=== PATIENT | male | born 2000 | race African-American/Black ===

== ENCOUNTER 2023-11-24 17:45 | Emergency (ER) | payer OTHER, SELFPAY ==
[2023-11-24 17:51] VITALS: BP 108/54; PULSE 80; O2SAT 99
[2023-11-24 18:14] VITALS: BP 116/73; PULSE 92; RESP 13; TEMP 36.6; O2SAT 99; BMI 44.1
[2023-11-24] MEDS: levETIRAcetam in NaCl (iso-os) 1,000 MG/100 ML PIGGYBACK 400 MG IV (18:55)
--- NOTE | 2023-11-24 19:21 | ED.GENADULT ---
HPI - General Adult General Chief complaint: Seizure Stated complaint: 2 SEIZURES Time Seen by Provider: 11/24/23 18:34 Source: patient, RN notes reviewed and old records reviewed Mode of arrival: EMS Limitations: no limitations History of Present Illness HPI narrative: 23-year-old male presents for evaluation of a seizure. Per the patient's significant other, the patient had a ?silent seizure this morning. ? They are unsure exactly what time this was About 30 minutes prior to arrival the patient had a tonic-clonic seizure witnessed by his significant other. She reports this lasted about 3 minutes Per EMS, the patient was postictal upon arrival At the time my evaluation he is awake, alert and oriented. The patient reports he takes Keppra 1gram b.i.d. He is unsure if he took his medication this morning Currently reports a mild headache. He was lying in bed during both seizures so there was no fall or head trauma No other complaints or concerns at this time Related Data Previous Rx's ?Medication ?Instructions ?Recorded lacosamide 100 mg tablet 100 mg PO BID #60 tabs 11/24/23 Allergies Allergy/AdvReac Type Severity Reaction Status Date / Time No Known Allergies Allergy Verified 11/24/23 18:16 Review of Systems Constitutional: Constitutional: Denies body ache(s), Denies chills, Denies fever(s) and Reports headache(s) Eyes: Eyes: Denies blurry vision ENT: Reports headache(s) and Denies sore throat Cardiovascular: Cardiovascular: Denies chest pain and Denies dyspnea Respiratory: Respiratory: Denies cough and Denies dyspnea Gastrointestinal: Gastrointestinal: Denies abdominal pain, Denies nausea and Denies vomiting Musculoskeletal: Musculoskeletal: Denies back pain Integumentary/Breasts: Skin/Breast: Denies rash Neurologic: Reports headache(s), Reports convulsions and Reports seizure-like activity Psychiatric: Psychiatric: Denies depression PMFSH Social History Social History Advance Directives: No Advance Directives Information Provided: No Physical Exam ED Vital Signs: Vital Signs - 24 hr 11/24/23 18:14 Temperature 97.9 F Pulse Rate 92 Respiratory Rate 13 Blood Pressure 116/73 Pulse Oximetry 99 Oxygen Delivery Method Room Air BMI result Body Mass Index 44.1 Const General: healthy appearing, comfortable, no acute distress, alert and awake Nutritional Appearance: well nourished Orientation/consciousness: patient oriented x3 HENMT Head: Yes normocephalic and Yes atraumatic Eyes Eyelids: Yes eyelids normal Conjunctivae: conjunctivae normal Sclerae: sclerae normal Corneas: corneas normal Pupils: Equal, round and reactive pupils present EOM: EOMs intact bilaterally Neck Neck: Yes full ROM Resp Effort & Inspection: normal respiratory effort, able to speak in complete sentences and not labored Cardio Rate: regular rate Rhythm: regular rhythm GI Inspection: No distended Palpation (GI): Soft to palpation, not firm, nontender, no guarding and not rigid Skin General skin exam: elasticity normal Neuro General: patient oriented x3 Cranial nerves: Yes CN's II-XII intact bilaterally, Yes Equal, round and reactive pupils present and Yes Bilaterally intact EOM present Cognition (Neuro): normal cognition Extrem Other: Moving all extremities well without any obvious deformities Course Reevaluation(s) Reevaluation #1: Patient received loading dose of Keppra. He has had no further seizure activity and is requesting discharge. He has been in the ER for over 2 hours without any further seizure activity, I agree that he is stable for discharge at this time. He did ask me to refill his lacosamide 100 mg b.i.d. and he has the bottle to confirm his prescription Time: 20:02 Medications Administered Discontinued Medications Generic Name Dose Route Start Last Admin Trade Name Raghavendra PRN Reason Stop Dose Admin Levetiracetam 1,000 mg in 100 mls @ 400 mls/hr 11/24/23 18:44 11/24/23 18:55 Keppra IV 11/24/23 18:58 400 mls/hr ONCE ONE Administration Medical Decision Making Medical Decision Making [facility] Narrative: 23-year-old male with past medical history significant for seizure disorder maintained on Keppra presents for evaluation of 2 reported seizures earlier today. Currently, the patient is awake, alert and oriented with no evidence of postictal state. Both seizures were witnessed by his significant other and there was no head trauma. Given that he is back to his baseline, I do not see any indication for emergent imaging of the brain at this time. Will check basic labs including a CPK. We will check Keppra level but I do not believe that will result today. Given the patient had 2 seizures in his unsure if he took his Keppra earlier today we will give him a 1 time dose of Keppra 1 g IV. He will remain on the registered nurse cardiac and seizure pad/precautions Differential Diagnosis Differential Diagnoses: The differential diagnosis associated with the presentation includes Seizure disorder Medication noncompliance Status epilepticus Postictal state Metabolic encephalopathy Lab Data MDM Lab Attestation statement: I reviewed the patient's lab results. Patient has a leukocytosis of 19.9, he has no symptoms other than a mild headache, this is likely reactive to his seizure. Electrolytes are within normal limits. Patient's renal function is baseline. His lactate is elevated 2.9 is CPK is elevated to 666 again, this is both likely related to tonic-clonic seizure. There is no source of infection and I do not suspect sepsis. 11/24/23 19:24 11/24/23 19:24 Labs: Lab Results 11/24/23 Range/Units 19:24 WBC 19.9 H (4.8-10.8) X10*3/uL RBC 5.49 (4.60-5.80) X10*6/uL Hgb 17.7 (14.0-18.0) g/dl Hct 48.8 (42.0-52.0) % MCV 88.9 (80.0-98.0) fL MCH 32.2 (27.0-33.0) pg MCHC 36.3 H (31.0-36.0) g/dl RDW 11.8 (11.0-16.0) % Plt Count 311 (160-400) X10*3/uL MPV 9.4 (9.4-12.4) fL Immature Gran % (Auto) 0.4 (0.0-0.4) % Neut % (Auto) 87.9 H (45-73) % Lymph % (Auto) 7.1 L (20-40) % Sac % (Auto) 4.4 (2-11) % Eos % (Auto) 0.0 (0-4) % Baso % (Auto) 0.2 (0-2) % Lymph # (Auto) 1.4 (1.2-4.9) X10*3/uL Sac # (Auto) 0.9 (0.1-1.2) X10*3/uL Eos # (Auto) 0.0 (0.0-0.4) X10*3/uL Baso # (Auto) 0.0 (0.0-0.2) X10*3/uL Abs Immat Gran (auto) 0.08 H (0.00-0.03) X10*3/uL Absolute Neuts (auto) 17.5 H (2.0-8.3) x10*3/uL Absolute Nucleated RBC 0.000 (0.0-0.012) X10*3/uL Nucleated RBC % (auto) 0.0 (0.0-0.2) /100WBC Sodium 138 (135-145) mmol/L Potassium 4.3 (3.3-5.1) mmol/L Chloride 104 (96-108) mmol/L Carbon Dioxide 21 L (22-29) mmol/L Anion Gap 17 (12-20) BUN 14 (9-16) mg/dL Creatinine 1.28 (0.5-1.4) mg/dL Estim Creat Clear Calc 121.6 Estimated GFR > 60 Random Glucose 96 (60-115) mg/dL Lactic Acid 2.9 H* (0.5-2.0) mmol/L Calcium 10.2 (8.4-10.2) mg/dL Total Bilirubin 0.8 (0.0-1.0) mg/dL AST 39 H (5-37) U/L ALT 56 H (0-40) U/L Alkaline Phosphatase 57 (39-117) U/L Total Creatine Kinase 666 H (38-174) U/L Total Protein 8.2 H (6.5-8.0) g/dL Albumin 4.8 (3.5-5.0) g/dL Lipase 15 (8-78) U/L Discharge Plan Discharge Clinical Impression: Generalized seizure Patient Disposition: Home, Self-Care Instructions: Recurrent Seizures in Adults (ED) Additional Instructions: Take all your medications as prescribed. It is important that you do not miss doses of your seizure medications as you are more likely to have breakthrough seizure Follow-up with your primary doctor Return for new or worsening symptoms Prescriptions: New lacosamide 100 mg tablet 100 mg PO BID Qty: 60 0RF Print Language: Luxembourgish
[2023-11-24 19:30] LABS: MANUAL DIFF FLAG NO
[2023-11-24 19:31] LABS: Basophils Percent Auto 0.2 % (0-2); Hematocrit 48.8 % (42.0-52.0); Hemoglobin 17.7 g/dl (14.0-18.0); Imm Gran Abs Auto 0.08 X10*3/uL (0.00-0.03); Imm Gran Pct Auto 0.4 % (0.0-0.4); Lymphocytes Absolute Auto 1.4 X10*3/uL (1.2-4.9); Lymphocytes Percent Auto 7.1 % (20-40); Mean Corpuscular HGB Conc 36.3 g/dl (31.0-36.0); Mean Corpuscular Hemoglobin 32.2 pg (27.0-33.0); Mean Corpuscular Volume 88.9 fL (80.0-98.0); Mean Platelet Volume 9.4 fL (9.4-12.4); Monocytes Absolute Auto 0.9 X10*3/uL (0.1-1.2); Monocytes Percent Auto 4.4 % (2-11); Neutrophils Absolute Auto 17.5 x10*3/uL (2.0-8.3); Neutrophils Percent Auto 87.9 % (45-73); Platelet Count 311 X10*3/uL (160-400); Red Blood Count 5.49 X10*6/uL (4.60-5.80); Red Cell Distribution Width 11.8 % (11.0-16.0); White Blood Count 19.9 X10*3/uL (4.8-10.8)
[2023-11-24 19:49] LABS: Alanine Aminotransferase 56 U/L (0-40); Albumin Level 4.8 g/dL (3.5-5.0); Alkaline Phosphatase 57 U/L (39-117); Anion Gap 17 (12-20); Aspartate Amino Transferase 39 U/L (5-37); Bilirubin Total 0.8 mg/dL (0.0-1.0); Blood Urea Nitrogen 14 mg/dL (9-16); Calcium 10.2 mg/dL (8.4-10.2); Carbon Dioxide 21 mmol/L (22-29); Chloride 104 mmol/L (96-108); Creatinine Clr Calc Pharmacy 121.6; Estimated Glomerular Filt Rate > 60; Glucose Random 96 mg/dL (60-115); Lipase 15 U/L (8-78); Potassium 4.3 mmol/L (3.3-5.1); Sodium 138 mmol/L (135-145); Total Protein 8.2 g/dL (6.5-8.0)
[2023-11-24 19:56] LABS: Lactic Acid 2.9 mmol/L (0.5-2.0)
[2023-11-24 20:10] VITALS: BP 127/75; PULSE 84; RESP 16; TEMP 36.6; O2SAT 99
[2023-11-24 21:29] LABS: Reflex Lactate? Lactic Acid Added
== END 2023-11-24 20:10 | disposition home or self-care (01) ==
PROVIDERS: Physician Assistant; Emergency Provider Emergency Medicine; PCP Pediatrics Adolescent Medicine
DX: R56.9 Unspecified convulsions (principal)
CPT/HCPCS: 36415; 80053; 80177; 82550; 83605; 83690; 85025; 96365; 99283; 99284; J1953